=== PATIENT | female | born 1960 | race American Indian/Alaskan Native ===

== ENCOUNTER → 2023-12-07 07:10 | Outpatient (REF) | payer BC, SELFPAY | LOC: EMG 07:10 | PROVIDERS: ATTENDING PHYSICIAN Orthopaedic Surgery | DX: R20.0 Anesthesia of skin (principal) | CPT/HCPCS: 95886; 95911 ==

== ENCOUNTER 2024-01-02 06:32 | Day surgery (SDC) | payer BC, SELFPAY ==
[2024-01-02 08:33] VITALS: BMI 22.7
[2024-01-02 08:34] VITALS: BP 141/84
[2024-01-02 09:23] VITALS: BP 148/81
== END 2024-01-02 09:45 | disposition home or self-care (01) ==
LOC: SDS 06:32
PROVIDERS: ATTENDING PHYSICIAN Orthopaedic Surgery
DX: G56.01 Carpal tunnel syndrome, right upper limb (principal)
CPT/HCPCS: 64721